=== PATIENT | female | born 1965 ===

== ENCOUNTER 2023-11-08 05:49 | Day surgery (SDC) | payer OTHER ==
[~2023-11-08] VITALS: Ht 157.5 cm; Wt 93.0 kg
[2023-11-08] MEDS ORDERED: CEFAZOLIN SODIUM 1,000 MG VIAL ONE (08:01)
[2023-11-08] MEDS ORDERED: POVIDONE-IODINE 118 ML BOTT TOP ONE ×2 (09:20→10:00)
[2023-11-08] MEDS ORDERED: CEFAZOLIN SODIUM 1,000 MG VIAL IV ONE (10:00)
== END 2023-11-08 15:45 | disposition home or self-care (01) ==
LOC: CIR.AMB 05:49
PROVIDERS: ATTEND Specialist
DX: D06.9 Carcinoma in situ of cervix, unspecified (principal); Z91.041 Radiographic dye allergy status